=== PATIENT | female | born 1970 | race Caucasian/White ===

== ENCOUNTER 2024-03-05 14:54 | Outpatient (AMB) | payer MEDICARE, MEDICAID, SELFPAY ==
--- NOTE | 2024-03-05 14:58 | MHC.PC.OV ---
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 Intake Note: New patient visit Agile Coach Required: No Allergies No Known Allergies Allergy (Verified 03/05/24 14:59) Medication List - Last Reviewed 03/05/24 by Bianca Clifford CMA albuterol sulfate 90 mcg/actuation inhalation cholecalciferol (vitamin D3) (Vitamin D3) 10 mcg PO QAM escitalopram oxalate 5 mg PO DAILY escitalopram oxalate 20 mg PO DAILY lamotrigine 200 mg PO DAILY lisinopril 10 mg PO DAILY 90 days lorazepam 0.5 mg PO QID PRN mirabegron ER (Myrbetriq) 25 mg PO DAILY multivitamin 1 tab PO DAILY simvastatin 10 mg PO BEDTIME 90 days trazodone mg PO Tobacco use date assessed: 03/05/24 Dental Screening Dental Screen Date: 03/05/24 Did you have a dental visit in the last 12 months?: Yes Did you have a dental problem in the last 6 months where you did not have access to dental care?: No Was dental information given to patient?: Patient has 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 HLD, HTN. COPD, Carpal Tunnel w/ Compressed Ulnar nerve as well. AVM in R 3rd & 4th Finger., Fatty Liver disease SurgHx: R hand Surgery. C-sect x 2, Bladder Mesh/Sling. B/L Bunions FHx: Mom: DM, HTN, HLD, NA Cirrhosis - Fatty liver dz. Dad: Lung CA. Sister: Cervical CA SocHx: Smokes 1ppd Dr [place] [facility] [place] [facility] [place] Surgical History (Updated 03/05/24 @ 16:06 by Demarcus Arroyo) History of section Family History (Updated 03/05/24 @ 15:32 by Bianca Clifford CMA) Mother HTN (hypertension) Hypercholesteremia Diabetes Maternal Grandmother HTN (hypertension) Hypercholesteremia Diabetes Cardiovascular disease Maternal Grandfather Cardiovascular disease Father Lung cancer Bone cancer Other Mental disorder Social History Housing: House Patient Tobacco Use Status: Current everyday Tobacco user Cigarette Packs Per Day: 1 Years Smoked: 36 e-Cigarette/Vaping Use: Never Used Second Hand Smoke Exposure: Yes service: No Current occupational status: unemployed Cognitive needs: No Hearing needs: No Vision needs: No Questionnaire PHQ-9 Over the last 2 weeks, how often have you been bothered by any of the following problems? 1. Little interest or pleasure in doing things: not at all 2. Feeling down, depressed, or hopeless: not at all 3. Trouble falling or staying asleep, or sleeping too much: not at all 4. Feeling tired or having little energy: not at all 5. Poor appetite or overeating: not at all 6. Feeling bad about yourself - or that you are a failure or have let yourself or your family down: not at all 7. Trouble concentrating on things, such as reading the newspaper or watching television: not at all 8. Moving or speaking so slowly that other people could have noticed. Or the opposite - being so fidgety or restless that you have been moving around a lot more than usual: not at all 9. Thoughts that you would be better off or of hurting yourself in some way: not at all Total score: 0 Depression Screening Interpretation: Negative Depression Screening Done: Yes 35710 - PHQ-9 Billing: Yes Source: Developed by Drs. Andrea Larry, Radha Nevarez, Chema Oseguera and colleagues, with an educational adria from [employer]. Thrive Questionnaire Date Thrive assessed: 03/05/24 I am a: Patient What is your living situation today?: I have a steady place to live Within the past 12 months, did the food you bought not last and you didn't have the money to get more?: Sometimes True Within the past 12 months, did you worry whether your food would run out before you got money to buy more?: Sometimes True Do you have trouble paying for medicines?: No Do you have trouble getting transportation to medical appointments?: No Do you have trouble paying your heating and electricity bill?: No Do you have trouble taking care of your child, family member or friend?: No Do you have trouble with day-to-day activities such as bathing, preparing meals, shopping, managing finances, etc.?: No Are you currently unemployed and looking for a job?: Yes Are you interested in more education?: No Please select the resources that you would like help with: None Currently or been in a relationship where the following occur: no concerns reported THRIVE Score: 2 AUDIT C Alcohol Use Questionnaire (AUDIT-C) 1. How often do you have a drink containing alcohol?: Never 3. How often do you have six or more drinks on one occasion?: Never Total Score: 0 ROCHELLE-7 AMB Questionnaire ROCHELLE-7 Date ROCHELLE - 7 assessed: 03/05/24 Feeling nervous, anxious, or on edge: 2 = More than half the days Not being able to stop or control worryin = Several days Worrying too much about different things: 1 = Several days Trouble relaxin = Not at all Being so restless that it is hard to sit still: 0 = Not at all Becoming easily annoyed or irritable: 1 = Several days Feeling afraid as if something awful might happen: 1 = Several days Total ROCHELLE-7 score (0-4 normal; 5-9 mild; 10-14 moderate; 15-21 severe): 6 Source: Developed by Drs. Andrea Larry, Radha Nevarez, Chema Oseguera and colleagues, with an educational adria from [employer]. ROCHELLE-7 Assessment Billing ROCHELLE-7 Assessment Tool: ROCHELLE-7 Assessment 10932 ACT Questionnaire In the past 4 weeks, how much of the time did your asthma keep you from getting as much done at work, school or at home?: None of the time During the past 4 weeks, how often have you had shortness of breath?: 1-2 times a week During the past 4 weeks, how often did your asthma symptoms wake you up at night or earlier than usual in the morning?: Not at all During the past 4 weeks, how often have you had to use your rescue inhaler or nebulizer medication?: 2-3 times a week How would you rate your asthma control during the past 4 weeks?: Completely controlled ACT Interpretation: Positive Score: 22 Review of Systems Const Denies chills, Denies fatigue, Denies fever(s), Denies headache(s) and Denies weakness ENT Denies dizziness and Denies headache(s) Card Denies chest pain, Denies lightheadedness, Denies dyspnea and Denies other (Palpitations) Resp Denies cough, Denies dyspnea, Denies wheezing and Denies other ( shortness of breath) Musc Denies numbness and Denies tingling Neuro Denies dizziness, Denies headache(s), Denies numbness, Denies tingling, Denies paresthesias and Denies weakness Psych Denies anxiety and Denies depression Endo Denies fatigue Aller/Immun Denies wheezing Physical exam (Primary Care) Vital Signs: Last Vital Signs Temp 98.3 F 03/05/24 15:07 Pulse 104 H 03/05/24 15:07 Resp 16 03/05/24 15:07 BP 102/68 03/05/24 15:07 Pulse Ox 94 03/05/24 15:07 Oxygen Delivery Method Room Air 03/05/24 15:07 BMI result Body Mass Index 26.6 Tobacco/Smoking Status: Tobacco use Status Tobacco use date assessed 03/05/24 03/05/24 15:07 Patient Tobacco Use Status Current everyday Tobacco 03/05/24 15:07 e-Cigarette/Vaping Use Never Used 03/05/24 15:07 PHQ-9: PHQ-9 Score PHQ-9: Total score 0 03/05/24 15:55 Depression Screening Interpretation: Negative Thrive Assessment: Date of Thrive Assessment Date Thrive assessed 03/05/24 03/05/24 15:33 Currently or been in a relationship where the following occur: no concerns reported Const General: no acute distress and well developed Nutritional Appearance: well nourished Orientation/consciousness: patient oriented x3 [facility] Head: Yes normocephalic and Yes atraumatic Eyes General: appearance normal, both eyes and all related structures Pupils: Equal, round and reactive pupils present EOM: EOMs intact bilaterally Resp Other: Clear but distant breath sounds Effort & Inspection: normal respiratory effort Auscultation: clear to auscultation bilaterally Cardio Rate: regular rate Rhythm: regular rhythm Heart sounds: S1 normal heart sound present, S2 normal heart sound present, no gallops, no murmurs and no rubs Neuro General: patient oriented x3 and gait normal Cranial nerves: Yes Equal, round and reactive pupils present Psych Affect: normal affect Assessment and Plan Assessment & Plan (1) Anxiety with depression: Code(s): F41.8 - Other specified anxiety disorders Plan: As?above (2) Bipolar disorder: Code(s): F31.9 - Bipolar disorder, unspecified Plan: Bipolar?disorder?with?anxiety?and?depression. She?is?on?a?regimen?of?medication?prescribed?by?her?psych?med?provider?and?appears?well?controlled. She?will?continue?her?current?medications?and?follow-up?with?her?psych?med?provider?as?recommended (3) Hypertension: Code(s): I10 - Essential (primary) hypertension Plan: Blood?pressure?is?controlled.??Goal?is?less?than?140/90 Continue?current?medication (4) Hyperlipidemia: Code(s): E78.5 - Hyperlipidemia, unspecified Plan: She?is?on?simvastatin Check?lipid (5) Smoker: Code(s): F17.200 - Nicotine dependence, unspecified, uncomplicated Plan: Smoker?and?history?of?COPD Advised?weaning?and?cessation.??Patient?is?pre?contemplative?at?this?time. 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 Advised?smoking?cessation Follow-up?with?pulmonology?as?recommended (8) Urinary incontinence: Code(s): R32 - Unspecified urinary incontinence Plan: Continue?Myrbetriq (9) Laboratory exam ordered as part of routine general medical examination: Code(s): Z00.00 - Encounter for general adult medical examination without abnormal findings Plan: Check?labs Orders: Orders Lipid Panel Today Z00.00 - Encounter for general adult medical examination without abnormal findings UA and rflx microscopic Today Z00.00 - Encounter for general adult medical examination without abnormal findings TSH reflex Free T4 Today Z00.00 - Encounter for general adult medical examination without abnormal findings Vitamin D 25-OH Total Today E55.9 - Vitamin D deficiency, unspecified Complete Blood Count Auto Diff Today Z00.00 - Encounter for general adult medical examination without abnormal findings Comprehensive [place]. Panel Fast Today Z00.00 - Encounter for general adult medical examination without abnormal findings Microalbumin, Random (w Creat) Today I10 - Essential (primary) hypertension Medications: New lisinopril 10 mg PO DAILY 90 days 90 tabs 3RF simvastatin 10 mg PO BEDTIME 90 days 90 tabs 3RF Coding Level of Care Code New Pt Level 4 (61822) Diagnoses Anxiety with depression F41.8 Bipolar disorder F31.9 Hypertension I10 Hyperlipidemia E78.5 Smoker F17.200 Hx of carpal tunnel syndrome Z86.69 COPD (chronic obstructive pulmonary disease) J44.9 Urinary incontinence R32 Laboratory exam ordered as part of routine general medical examination Z00.00 Additional Codes ROCHELLE-7 Assessment Billing - ROCHELLE-7 Assessment Tool: ROCHELLE-7 Assessment [id number] ([id number])
[2024-03-05 15:07] VITALS: BP 102/68; PULSE 104; RESP 16; TEMP 36.8; O2SAT 94; BMI 26.6
== END 2024-03-05 16:17 | disposition home or self-care (01) ==
PROVIDERS: PCP Family Medicine; Visit Provider Family Medicine
DX: I10 Essential (primary) hypertension (principal); F31.9 Bipolar disorder, unspecified; J44.9 Chronic obstructive pulmonary disease, unspecified; F41.8 Other specified anxiety disorders; E78.5 Hyperlipidemia, unspecified; F17.210 Nicotine dependence, cigarettes, uncomplicated; Z86.69 Personal history of other diseases of the nervous system and sense organs; R32 Unspecified urinary incontinence
CPT/HCPCS: 99204

== ENCOUNTER 2024-08-19 15:30 | Outpatient (REF) | payer MEDICARE, MEDICAID, SELFPAY ==
[2024-08-19 17:55] LABS: MANUAL DIFF FLAG NO
[2024-08-19 18:04] LABS: Basophils Absolute Auto 0.1 X10*3/uL (0.0-0.2); Basophils Percent Auto 0.9 % (0-2); Eosinophils Absolute Auto 0.1 X10*3/uL (0.0-0.4); Eosinophils Percent Auto 1.2 % (0-4); Hematocrit 49.6 % (37.0-47.0); Imm Gran Abs Auto 0.02 X10*3/uL (0.00-0.03); Imm Gran Pct Auto 0.2 % (0.0-0.4); Lymphocytes Absolute Auto 4.5 X10*3/uL (1.2-4.9); Lymphocytes Percent Auto 39.7 % (20-40); Mean Corpuscular HGB Conc 34.3 g/dl (31.0-35.0); Mean Corpuscular Hemoglobin 33.4 pg (27.0-33.0); Mean Corpuscular Volume 97.4 fL (80.0-98.0); Mean Platelet Volume 9.9 fL (9.4-12.3); Monocytes Absolute Auto 0.6 X10*3/uL (0.1-1.2); Monocytes Percent Auto 5.5 % (2-11); Neutrophils Absolute Auto 5.9 x10*3/uL (2.0-8.3); Neutrophils Percent Auto 52.5 % (45-73); Platelet Count 282 X10*3/uL (160-400); Red Blood Count 5.09 X10*6/uL (4.20-5.50); Red Cell Distribution Width 12.5 % (11.0-16.0); White Blood Count 11.3 X10*3/uL (4.8-10.8)
[2024-08-19 18:10] LABS: Appearance Urine Clear; Color Urine Yellow; Glucose Urine UA Negative (Negative); Leukocyte Esterase Urine Negative (Negative); Nitrite Urine Negative (Negative); PH 6.5 (5.0-9.0); Specific Gravity - Urine <= 1.005 (1.005-1.025); Urine Blood Negative (Negative); Urine Ketones Negative (Negative); Urine Protein Negative (Neg-Trace)
[2024-08-19 18:25] LABS: Alanine Aminotransferase 75 U/L (0-31); Albumin Level 4.3 g/dL (3.5-5.0); Alkaline Phosphatase 152 U/L (39-117); Anion Gap 12 (12-20); Aspartate Amino Transferase 67 U/L (5-31); Bilirubin Total 0.4 mg/dL (0.0-1.0); Blood Urea Nitrogen 8 mg/dL (9-16); Calcium 10.1 mg/dL (8.4-10.2); Carbon Dioxide 29 mmol/L (22-29); Chloride 104 mmol/L (96-108); Cholesterol 137 mg/dL (<200); Estimated Glomerular Filt Rate > 60; Glucose Fasting 73 mg/dL (60-99); HDL Cholesterol 37 mg/dL (>40); LDL Cholesterol Calculated 70 mg/dL (<100); Potassium 4.5 mmol/L (3.3-5.1); Sodium 140 mmol/L (135-145); Total Protein 7.4 g/dL (6.5-8.0); Triglycerides 153 mg/dL (<150)
[2024-08-19 18:30] LABS: Creatinine Urine 22.05 mg/dL; Microalbumin Urine < 5.0 mg/L
[2024-08-19 18:45] LABS: TSH reflex Free T4 1.17 uIU/mL (0.32-4.0); Vitamin D 25-OH Total 62.2 ng/mL (>30)
== END 2024-08-19 15:31 | disposition home or self-care (01) ==
LOC: HO.WFDLDS 15:30
PROVIDERS: Visit Provider Family Medicine
DX: Z00.00 Encounter for general adult medical examination without abnormal findings (principal); E55.9 Vitamin D deficiency, unspecified; I10 Essential (primary) hypertension
CPT/HCPCS: 36415; 80053; 80061; 81003; 82306; 82570; 84443; 85025

== ENCOUNTER 2025-04-28 11:03 | Outpatient (AMB) | payer MEDICARE, MEDICAID, SELFPAY ==
--- NOTE | 2025-04-28 11:06 | A.OFFPC_ITS ---
Vital Signs 04/28/25 11:14 Height 5 ft 3 in Weight 146 lb 4 oz BMI 25.9 BP 122/70 Blood Pressure Location Lt brachial Position Sitting Respiration 12 Pulse 72 Pulse Source Pulse Oximeter Temp 97.5 F Temp Source Oral Pulse Oximetry (%) 97 Oxygen Delivery Method Room Air Intake Visit Reasons: Angela Dr Rai Intake Note: ANGELA to establish care. Patient c/o left ear blockage for a month on and off. 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: No Allergies No Known Allergies Allergy (Verified 04/28/25 11:07) Medication List - Last Reconciled 04/28/25 by Bertha Peres, [employer]- albuterol sulfate 90 mcg/actuation inhalation cholecalciferol (vitamin D3) (Vitamin D3) 10 mcg PO QAM escitalopram oxalate 5 mg PO DAILY escitalopram oxalate 20 mg PO DAILY lamotrigine 200 mg PO DAILY lisinopril 10 mg PO DAILY 90 days lorazepam 0.5 mg PO QID PRN mirabegron ER (Myrbetriq) 25 mg PO DAILY multivitamin 1 tab PO DAILY simvastatin 10 mg PO BEDTIME 90 days trazodone mg PO Tobacco use date assessed: 04/28/25 Dental Screening Dental Screen Date: 04/28/25 Did you have a dental visit in the last 12 months?: Yes Did you have a dental problem in the last 6 months where you did not have access to dental care?: No Was dental information given to patient?: Patient has dentist HPI HPI Comments History of Present Illness Details 55 y/o F HLD, Urine incont s/p bladder m esh, current smoker 1.5 packs per day, 45 pack year history; family hx of lung and uterine ca, Fatty liver, Bipolar w/ Anx & Dep. HLD, HTN, COPD,perforated septum s/p bladder mesh, c section x 2, R hand AVM removal, R elbow nerve release, R CTS release , bilat bunions Fhx: Dad lung ca; Mom of NAFLD, Siblings 6 alive 1 sister w/ uterine CA; reports lots of heart dz Social: single, 3 children, does not work Health Maintenance Tdap admin today Colon cologaurd done >3 years ago, renewed order today Mammo declined DEXA states done in the past and normal, i dont have these results Pap was active w/ [facility]. No recent screens. Declined future Specialists: Pulm Dr Miles [facility] - managed lung ca screening Counseling and prescriber @ [employer] in [place] [facility] Here today as a new patient to [facility] care Old records reviewed CC: c/o L ear feeling blocked on and off for 1 mo worse since onset denies environmental allergies this has never happened before mild pain that comes and goes denies fever, chills, drainage, exposure to h20, no loss of hearing. Itchy spot on back, has been there before; thinks its skin. this has happened on L arm before and it goes away cant reach or see this so not sure what it is not active w derm does have some growths on face that have been there for years; getting bigger and changing color, they are itchy. Fatty Liver with elevated LFT - labs 08/2024. Us 08/2022. Bipolar, Anx, Depression - under mgmt with [employer] for counseling and prescribing HTN controlled on lisinopril 10mg QD HLD - on simvastatin 10mg w/o side effects. COPD, active smoker - managed by [facility]. Tdap admin today. Does not want to quit smoking; enrolled in lung ca program at [facility] Urine incont s/p bladder mesh - managed by [facility], on Myrbetriq Exam Awake alert NAD Scleras nonicteric, wears glasses TM intact and clear bilat, EAC clear Perforated and deviated septum RRR LS dim throughout No edema BLE Mood and affect appropriate L shoulder is a raised sanpapery brown/black skin lesion; on face are several different size and color moles Plan: Tdap today Cologaurd ordererd Labs ordered Cont all meds Derm referral for area on back and moles on face Smoking cessation Declined mammo, pap and DEXA cont care w/ care team RTO 6 mo routjordan fu, labs 1 week before, sooner PRN An additional 45 minutes was spent addressing the problem(s) noted at todays visit. This includes time spent before the visit reviewing the chart, time spent during the visit, and time spent after the visit on documentation reviewing laboratory results, diagnostic imaging, medications, performing a medically necessary evaluation, counseling on diagnoses, care coordination, ordering appropriate tests, ordering appropriate medications, review of tests performed by other providers, reporting test results with the patient, communication with other healthcare providers. [facility] Medical History (Updated 04/28/25 @ 13:11 by JACKIE JonesJANET) Anxiety and depression Hx of carpal tunnel syndrome Surgical History (Updated 04/28/25 @ 11:48 by MEREDITH Jones) History of section History of colonoscopy (~2021) Family History Mother HTN (hypertension) Hypercholesteremia Diabetes Maternal Grandmother HTN (hypertension) Hypercholesteremia Diabetes Cardiovascular disease Maternal Grandfather Cardiovascular disease Father Lung cancer Bone cancer Other Mental disorder Social History (Updated 04/28/25 @ 11:17 by David Coe MA) Household Members: Children Housing: House Are you a primary specialist wound care to a significant other at home: No Do you presently have visiting nurse or other home services: No Alcohol intake: never Patient Tobacco Use Status: Current everyday Tobacco user Cigarette Packs Per Day: 1 Years Smoked: 36 e-Cigarette/Vaping Use: Never Used Second Hand Smoke Exposure: Yes service: No Current occupational status: unemployed Cognitive needs: No Hearing needs: No Vision needs: No Questionnaire PHQ-9 Over the last 2 weeks, how often have you been bothered by any of the following problems? 1. Little interest or pleasure in doing things: nearly every day 2. Feeling down, depressed, or hopeless: several days 3. Trouble falling or staying asleep, or sleeping too much: several days 4. Feeling tired or having little energy: several days 5. Poor appetite or overeating: more than half the days 6. Feeling bad about yourself - or that you are a failure or have let yourself or your family down: several days 7. Trouble concentrating on things, such as reading the newspaper or watching television: not at all 8. Moving or speaking so slowly that other people could have noticed. Or the opposite - being so fidgety or restless that you have been moving around a lot more than usual: not at all 9. Thoughts that you would be better off or of hurting yourself in some way: not at all Total score: 9 Depression Screening Interpretation: Positive Depression Screening Done: Yes 46663 - PHQ-9 Billing: Yes Source: Developed by Will Zaldivaret B.W. Roque, Chema Oseguera and colleagues, with an educational adria from Jaco Solarsi. Thrive Questionnaire Date Thrive assessed: 04/28/25 I am a: Patient What is your living situation today?: I have a steady place to live Within the past 12 months, did the food you bought not last and you didn't have the money to get more?: Never true Within the past 12 months, did you worry whether your food would run out before you got money to buy more?: Never true Do you have trouble paying for medicines?: No Do you have trouble getting transportation to medical appointments?: No Do you have trouble paying your heating and electricity bill?: Yes Do you have trouble taking care of your child, family member or friend?: No Do you have trouble with day-to-day activities such as bathing, preparing meals, shopping, managing finances, etc.?: No Are you currently unemployed and looking for a job?: No Are you interested in more education?: No Please select the resources that you would like help with: None Currently or been in a relationship where the following occur: No concerns reported THRIVE Score: 1 AUDIT C Alcohol Use Questionnaire (AUDIT-C) 1. How often do you have a drink containing alcohol?: Never 3. How often do you have six or more drinks on one occasion?: Never Total Score: 0 ROCHELLE-7 AMB Questionnaire ROCHELLE-7 Date ROCHELLE - 7 assessed: 04/28/25 Feeling nervous, anxious, or on edge: 3 = Nearly every day Not being able to stop or control worryin = Nearly every day Worrying too much about different things: 3 = Nearly every day Trouble relaxin = Not at all Being so restless that it is hard to sit still: 1 = Several days Becoming easily annoyed or irritable: 3 = Nearly every day Feeling afraid as if something awful might happen: 1 = Several days Total ROCHELLE-7 score (0-4 normal; 5-9 mild; 10-14 moderate; 15-21 severe): 14 Source: Developed by Drs. Andrea Larry, Radha Nevarez, Chema Oseguera and colleagues, with an educational adria from Jaco Solarsi. ROCHELLE-7 Assessment Billing ROCHELLE-7 Assessment Tool: ROCHELLE-7 Assessment 56751 Physical exam (Primary Care) Vital Signs: Last Vital Signs Temp 97.5 F 04/28/25 11:14 Pulse 72 04/28/25 11:14 Resp 12 04/28/25 11:14 BP 122/70 04/28/25 11:14 Pulse Ox 97 04/28/25 11:14 Oxygen Delivery Method Room Air 04/28/25 11:14 BMI result Body Mass Index 25.9 Tobacco/Smoking Status: Tobacco use Status Tobacco use date assessed 04/28/25 04/28/25 11:16 Patient Tobacco Use Status Current everyday Tobacco 04/28/25 11:17 e-Cigarette/Vaping Use Never Used 04/28/25 11:17 Are you ready to quit: No Tobacco cessation counseling provided: Yes Items discussed: Nicotine replacement, QuitWorks and Other Relapse Prevention: discussed the importance of a supportive environment, discussed extending NRT, discussed negative mood or depression after quitting, weight gain after smoking is common and discussed dietary, exercise and/or lifestyle changes Number of minutes spent counselin CPT code: 57428 - 4-10 Minutes PHQ-9: PHQ-9 Score PHQ-9: Total score 9 04/28/25 12:11 Depression Screening Interpretation: Positive Thrive Assessment: Date of Thrive Assessment Date Thrive assessed 04/28/25 04/28/25 11:16 Currently or been in a relationship where the following occur: No concerns reported Immunizations Boostrix Tdap 2.5 Lf unit-8 mcg-5 Lf/0.5 mL intramuscular syringe Performing Provider: NGUYEN Jones Performing Location: [facility] Administered by: David Coe MA on 04/28/25 12:11 Dose Route Admin Location Dispensed Lot Number Expiration Date NDC Telecommunication Engineer 0.5 mL IM Right Deltoid 0.5 mL [id number] 07/17/27 71489-112-00 Tran[employer] VIS Given Date VIS Provided VIS Publication Date 04/28/25 Single Vaccine 21 Eligibility Eligibility Date Funding Source Not [facility] Eligible 04/28/25 Private Coding Level of Care Code Est Pt Level 5 (07824) Est Pt Prev Care 40-64y(98443) Diagnoses Encounter for general adult medical examination with abnormal findings Z00.01 Papanicolaou smear declined Z53.20 Mammogram declined Z53.20 Smoker F17.200 Family history of lung cancer Z80.1 Panlobular emphysema J43.1 COPD type: emphysema Emphysema type: panlobular Bipolar disorder, current episode mixed, mild F31.61 Active/Remission status: currently active Current bipolar episode type: mixed Current episode severity: mild Mixed hyperlipidemia E78.2 Hyperlipidemia type: mixed hyperlipidemia Primary hypertension I10 Hypertension type: primary hypertension Elevated LFTs R79.89 Screening for lung cancer Z12.2 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 Need for Tdap vaccination Z23 Other urinary incontinence N39.498 Urinary Incontinence type: other incontinence Fatty liver K76.0 Anxiety with depression F41.8 Perforated nasal septum J34.89 Encounter to establish care Z76.89 Additional Codes ROCHELLE-7 Assessment Billing - ROCHELLE-7 Assessment Tool: ROCHELLE-7 Assessment 45572 ([id number]) PHQ-9 - 98075 - PHQ-9 Billing: Yes ([id number]) Vital Signs *Quality* - CPT code: 29655 - 4-10 Minutes ([id number]) Assessment & Plan Assessment & Plan (1) Encounter for general adult medical examination with abnormal findings: Onset Date: ~04/28/25 Code(s): Z00.01 - Encounter for general adult medical examination with abnormal findings Category: Medical (2) Papanicolaou smear declined: Code(s): Z53.20 - Procedure and treatment not carried out because of patient's decision for unspecified reasons Category: Medical (3) Mammogram declined: Code(s): Z53.20 - Procedure and treatment not carried out because of patient's decision for unspecified reasons Category: Medical (4) Smoker: Comment: Smoking Cessation How to Quit There are a lot of ways to quit smoking and many resources to help you. Family members, friends, and co-workers may be supportive or encouraging, but to be successful the desire and commitment to quit must be your own. Most people who have been able to successfully quit smoking made at least one unsuccessful attempt in the past. Try not to view past attempts to quit as failures, but rather as learning experiences. Stopping smoking or using smokeless tobacco is difficult, but anyone can do it. Know the symptoms to expect when you stop. Common symptoms include: ? An intense craving for nicotine ? Anxiety, tension, restlessness, frustration, or impatience ? Difficulty concentrating ? Drowsiness or trouble sleeping, as well as bad dreams and nightmares ? Drowsiness and trouble sleeping ? Headaches ? Increased appetite and weight gain ? Irritability or depression How severe your symptoms are depends on how long you smoked and how many cigarettes you smoked each day. Feel ready to quit? ? First and foremost, set a quit date and quit completely on that day. Before your quit date, you may begin reducing your cigarette use. But remember, there is no safe level of cigarette smoking. ? List the reasons why you want to quit. Include both short- and long-term benefits. ? Identify the times you are most likely to smoke. For example, do you tend to smoke when feeling stressed or down? When out at night with friends? While drinking coffee or alcohol? When bored? While driving? Right after a meal or sex? During a work break? While watching TV or playing cards? When you are with other smokers? ? Let all of your friends, family, and co-workers know of your plan to stop smoking and your quit date. Just being aware that they know what you're going through can be helpful, especially when you are grumpy. ? Get rid of all your cigarettes just before the quit date, and clean out anything that smells like smoke, such as clothes and furniture. Make a plan about what you will do instead of smoking at those times when you are most likely to smoke. ? Be as specific as possible. For example, drink tea instead of coffee -- tea may not trigger the desire for a cigarette. Or, take a walk when you feel stressed. ? Remove ashtrays and cigarettes from the car. Place pretzels or hard candies there instead. Pretend-smoke with a straw. ? Find activities that focus your hands and mind but are not taxing or fattening. Computer games, solitaire, knitting, sewing, and crossword puzzles may help. ? If you normally smoke after eating, find other ways to end a meal. Play a tape or CD, eat a piece of fruit, get up and make a phone call, or take a walk (a good distraction that also benoit calories). Make other changes in your lifestyle. ? Change your daily schedule and habits. Eat at different times or eat several small meals instead of three large ones. Sit in a different chair or even a different room. ? Satisfy your oral habits by eating celery or other low-calorie snack, chewing sugarless gum, or sucking on a cinnamon stick. ? Go to public places and restaurants where smoking is prohibited or restricted. ? Eat regular meals and don't eat too much candy or sweet things. ? Get more exercise. Take walks or ride a bike. Exercise helps relieve the urge to smoke. Set short-term quitting goals and reward yourself when you meet them. ? Every day, put the money you normally spend on cigarettes in a jar. Then buy s omething pleasurable after a period of time. ? Try not to think about all the days ahead you will need to avoid smoking. Take it one day at a time. ? Even one puff or one cigarette will make your desire for more cigarettes even stronger. However, it is normal to make mistakes. So even if you have one cigarette, you don't need to take the next one. Other tips to help you quit smoking and stick to it: ? Enroll in a smoking cessation program (hospitals, health departments, community centers, and work sites often offer programs). Learn about self-hypnosis or other techniques. ? Ask your health care provider about prescription medications that are safe and appropriate for you. ? Find out about nicotine patches, gum, and sprays. The [place] [employer]'s web site -- www.cancer.org -- is an excellent resource for smokers who are trying to quit, and the [employer] [place] [employer] can help some smokers kick the habit. Above all, don't get discouraged if you aren't able to quit smoking the first time. Nicotine addiction is a hard habit to break. Try something different next time. Develop new strategies, and try again. Many people take several attempts to finally kick the habit. Code(s): F17.200 - Nicotine dependence, unspecified, uncomplicated Category: Social Hx (5) Family history of lung cancer: Comment: dad Code(s): Z80.1 - Family history of malignant neoplasm of trachea, bronchus and lung Category: Medical (6) COPD (chronic obstructive pulmonary disease): Code(s): J44.9 - Chronic obstructive pulmonary disease, unspecified Category: Medical Qualifiers: COPD type: emphysema Emphysema type: panlobular Qualified Code(s): J43.1 - Panlobular emphysema (7) Bipolar disorder: Code(s): F31.9 - Bipolar disorder, unspecified Category: Medical Qualifiers: Active/Remission status: currently active Current bipolar episode type: mixed Current episode severity: mild Qualified Code(s): F31.61 - Bipolar disorder, current episode mixed, mild (8) Hyperlipidemia: Code(s): E78.5 - Hyperlipidemia, unspecified Category: Medical Qualifiers: Hyperlipidemia type: mixed hyperlipidemia Qualified Code(s): E78.2 - Mixed hyperlipidemia (9) Hypertension: Code(s): I10 - Essential (primary) hypertension Category: Medical Qualifiers: Hypertension type: primary hypertension Qualified Code(s): I10 - Essential (primary) hypertension (10) Elevated LFTs: Comment: [place] LIVER 2021 Code(s): R79.89 - Other specified abnormal findings of blood chemistry Category: Medical (11) Screening for lung cancer: Comment: [facility] Code(s): Z12.2 - Encounter for screening for malignant neoplasm of respiratory organs Category: Medical (12) Atypical squamoproliferative skin lesion: Comment: refer to ne derm Code(s): D49.2 - Neoplasm of unspecified behavior of bone, soft tissue, and skin Category: Medical (13) Need for Tdap vaccination: Code(s): Z23 - Encounter for immunization Category: Medical (14) Urinary incontinence: Comment: s/p mesh placement Code(s): R32 - Unspecified urinary incontinence Category: Medical Qualifiers: Urinary Incontinence type: other incontinence Qualified Code(s): N39.498 - Other specified urinary incontinence (15) Fatty liver: Comment: [place] 2021 Code(s): K76.0 - Fatty (change of) liver, not elsewhere classified Category: Medical (16) Anxiety with depression: Code(s): F41.8 - Other specified anxiety disorders Category: Medical (17) Perforated nasal septum: Code(s): J34.89 - Other specified disorders of nose and nasal sinuses Category: Medical (18) Encounter to establish care: Code(s): Z76.89 - Persons encountering health services in other specified circumstances Plan . Orders: Orders Complete Blood Count no Diff Today E78.5 - Hyperlipidemia, unspecified, I10 - Essential (primary) hypertension Comprehensive Met. Panel Today E78.5 - Hyperlipidemia, unspecified, I10 - Essential (primary) hypertension IRON PROFILE Today E78.5 - Hyperlipidemia, unspecified, I10 - Essential (primary) hypertension Lipid Panel Today E78.5 - Hyperlipidemia, unspecified, I10 - Essential (primary) hypertension Microalbumin, Random (w Creat) Today E78.5 - Hyperlipidemia, unspecified, I10 - Essential (primary) hypertension TSH reflex Free T4 Today E78.5 - Hyperlipidemia, unspecified, I10 - Essential (primary) hypertension Vitamin B12 and Folate Today E78.5 - Hyperlipidemia, unspecified, I10 - Essential (primary) hypertension TDaP Immunization Today Z23 - Encounter for immunization Hemoglobin A1c 6 Months E78.2 - Mixed hyperlipidemia, I10 - Essential (primary) hypertension Ferritin Today E78.5 - Hyperlipidemia, unspecified, I10 - Essential (primary) hypertension Hemoglobin A1c Today E78.5 - Hyperlipidemia, unspecified, I10 - Essential (primary) hypertension Vitamin D 25-OH Total Today E78.5 - Hyperlipidemia, unspecified, I10 - Esse ntial (primary) hypertension Comprehensive Met. Panel 6 Months E78.2 - Mixed hyperlipidemia, I10 - Essential (primary) hypertension Lipid Panel 6 Months E78.2 - Mixed hyperlipidemia, I10 - Essential (primary) hypertension Referrals Cologuard Test Z12.11 - Encounter for screening for malignant neoplasm of colon, Z12.12 - Encounter for screening for malignant neoplasm of rectum, Z98.890 - Other specified postprocedural states Dermatology Referral D49.2 - Neoplasm of unspecified behavior of bone, soft tissue, and skin Patient Instructions: Health screenings for women You should visit your health care provider from time to time, even if you are healthy. The purpose of these visits is to: Screen for medical issues Assess your risk for future medical problems Encourage a healthy lifestyle Update vaccinations and other preventive care services Help you get to know your provider in case of an illness Information Even if you feel fine, you should still see your provider for regular checkups. These visits can help you avoid problems in the future. For example, the only way to find out if you have high blood pressure is to have it checked regularly. High blood sugar and high cholesterol levels also may not have any symptoms in the early stages. A simple blood test can check for these conditions. There are specific times when you should see your provider or receive specific health screenings. The [place] Preventive Services Task Force publishes a list of recommended screenings. Below are screening guidelines for women ages 18 to 39. BLOOD PRESSURE SCREENING Your blood pressure should be checked at least once every 3 to 5 years if: Your blood pressure is in the normal range (top number less than 120 mm Hg and bottom number less than 80 mm Hg) You don't have risk factors for high blood pressure Ask your provider if you need your blood pressure checked more often if: The top number is 120 to 129 mm Hg or the bottom number is 70 to 79 mm Hg You have diabetes, heart disease, kidney problems, are overweight, or have certain other health conditions You have a first-degree relative with high blood pressure You are Black You had high blood pressure during a If the top number is 130 mm Hg or greater or the bottom number is 80 mm Hg or greater, this is considered stage 1 hypertension. Schedule an appointment with your provider to learn how you can reduce your blood pressure. Watch for blood pressure screenings in your area. Ask your provider if you can stop in to have your blood pressure checked. BREAST CANCER SCREENING Experts do not agree about the benefits of breast self-exams in finding breast cancer or saving lives. Talk to your provider about what is best for you. A screening mammogram is not recommended for most women under age 40. Your provider may discuss and recommend mammograms, MRI scans, or ultrasounds if you have an increased risk for breast cancer, such as: A mother or sister who had breast cancer at a young age (most often starting screening earlier than the age the close relative was diagnosed) You carry a high-risk genetic marker CERVICAL CANCER SCREENING Cervical cancer screening should start at age 21 years unless your provider advi ses otherwise. After the first test: Women ages 21 through 29 should have a Pap test every 3 years. Exoprts do not agree on whether HPV testing is recommended for this age group. Women ages 30 through 65 should be screened with either a Pap test every 3 years or the HPV test every 5 years or both tests every 5 years (called cotesting ). Women who have been treated for precancer (cervical dysplasia) should continue to have Pap tests for 20 years after treatment or until age 65, whichever is longer. If you have had your uterus and cervix removed (total hysterectomy), and you have not been diagnosed with cervical cancer or precancer (high grade cervical neoplasia), you do not need cervical cancer screening. CHOLESTEROL SCREENING Cholesterol screening should begin at: Age 45 for women with no known risk factors for coronary heart disease Age 20 for women with known risk factors for coronary heart disease Repeat cholesterol screening should take place: Every 5 years for women with normal cholesterol levels More often if changes occur in lifestyle (including weight gain and diet) More often if you have diabetes, heart disease, kidney problems, or certain other conditions DIABETES SCREENING You should be screened for diabetes starting at age 35 and then repeated every 3 years if you have no risk factors for diabetes. Screening may need to start earlier and be repeated more often if you have other risk factors for diabetes, such as: You have a first degree relative with diabetes. You are overweight or have obesity. You have high blood pressure, prediabetes, or a history of heart disease. Screening for diabetes should be done if you are planning to become and you are overweight and have other risk factors such as high blood pressure. DENTAL EXAM Go to the dentist once or twice every year for an exam and cleaning. Your dentist will evaluate if you need more frequent visits. EYE EXAM Have an eye exam every 5 to 10 years before age 40. If you have vision problems, have an eye exam every 2 years or more often if recommended by your provider. You should have an eye exam that includes an examination of your retina (back of your eye) at least every year if you have diabetes. IMMUNIZATIONS Commonly needed vaccines include: Flu shot: get one every year. COVID-19 vaccine: ask your provider what is best for you. Tetanus-diphtheria and acellular pertussis (Tdap) vaccine: have one at or after age 19 as one of your tetanus-diphtheria vaccines if you did not receive it as an adolescent. Tetanus-diphtheria: have a booster (or Tdap) every 10 years. Varicella vaccine: receive 2 doses if you never had chickenpox or the varicella vaccine. Hepatitis B vaccine: receive 2, 3, or 4 doses, depending on your exact circumstances. Measles, mumps, and rubella (MMR) vaccine: receive 1 to 2 doses if you are not already immune to MMR. Your provider can tell you if you are immune. Ask your provider about the human papillomavirus (HPV) vaccine if: You have not received the HPV vaccine in the past You have not completed the full vaccine series (you should catch up on this shot) Ask your provider if you should receive other immunizations if you have certain health problems that increase your risk for some diseases such as pneumonia. INFECTIOUS DISEASE SCREENING Women who are sexually active should be screened for chlamydia and gonorrhea up until age 25. Women 25 years and older should be screened for chlamydia and gonorrhea if at high risk. Screening for hepatitis C: All adults ages 18 to 79 should get a one-time test for hepatitis C. people should be screened at every . Screening for human immunodeficiency virus (HIV): All people ages 15 to 65 should get a one-time test for HIV. Depending on your lifestyle and medical history, you may also need to be screened for infections such as syphilis and HIV, as well as other infections. PHYSICAL EXAM All adults should visit their provider from time to time, even if they are healthy. The purpose of these visits is to: Screen for disease Assess your risk of future medical problems Encourage a healthy lifestyle Update your vaccinations and other preventive care services Maintain a relationship with a provider in case of an illness Your height, weight, and BMI should be checked at every exam. During your exam, your provider may ask you about: Depression and anxiety Diet and exercise Alcohol and tobacco use Safety issues, such as using seat belts, smoke detectors, and intimate partner violence Your medicines and risk for interactions SKIN SELF-EXAM Your provider may check your skin for signs of skin cancer, especially if you're at high risk, such as if you: Have had skin cancer before Have close relatives with skin cancer Have a weakened immune system OTHER SCREENING Talk with your provider about colon cancer screening if you have a strong family history of colon cancer or polyps, or if you have had inflammatory bowel disease or polyps yourself. Routine bone density screening of women under 40 is not recommended. Walk-In Care (Urgent Care): We Make it Easy Walk-in for urgent medical issues such as: ? Seasonal Allergies ? Insect Bites ? Cough ? Diarrhea ? Acute Asthma Attacks ? Back, Knee or Joint Pain ? Ear Infection ? Fever without a Rash ? Headaches ? Nausea ? Felicity Eye, Rash or Skin Irritation ? Sore Throat ? Sports Physicals ? Vomiting Most insurances are accepted. Patients do not need to be part of the [facility] to seek care at the walk-in clinic. Locations [facility] [address], [place] [address] ? [phone] [facility] Walk-In Care in [place] provides services to ages 18 and over. Open Sunday-Sunday: 8 a.m. to 5 p.m. and Sunday: 9 a.m. to 3 p.m.* *Hours may vary due to staffing availability. To confirm Walk-In Care hours in [place], please call [phone]. [address] [place] [address] ? [phone] [facility]In [facility] in [place] provides services to ages 12 and over. Open Sunday-Sunday: 8 a.m. to 5 p.m. Hours may vary due to staffing availability. To confirm Walk-In Care hours in [place], please call [phone]. LABORATORY SERVICES: [facility] Lab ? Primary Location [address] [place] [address] Sunday through Sunday 6:00 AM ? 5:00 PM Sunday 7:00 AM ? 11:00 AM* [phone] The [facility] Lab is centrally located near the front entrance of the [facility] for easy outpatient access. Convenient parking is provided for outpatients. *Hours may vary due to staffing availability. To confirm Laboratory hours for any location, please call [phone]. Offsite Location For your convenience, we offer offsite laboratory draw stations at the following locations: [address] [place] [address] ? [address], [facility] Sunday through Sunday 7:30 AM ? 1:00 PM* [phone] *Hours may vary due to staffing availability. To confirm Laboratory hours for any location, please call [phone]. [place] ? [address] Sunday through Sunday 6:00 AM ? 3:30 PM* Sunday 6:30 AM ? 3 PM* [phone] *Hours may vary due to staffing availability. To confirm Laboratory hours for any location, please call [phone] [place] [address] Sunday through Sunday 7:30 AM ? 4:00 PM* [phone] *Hours may vary due to staffing availability. To confirm Laboratory hours for any location, please call [phone] [place] [address] Sunday through 9:00 AM ? 4:00 PM* *Hours may vary due to staffing availability. To confirm Laboratory hours for any location, please call [phone]. Appointments are not necessary. Walk-ins are welcome. Like all the departments throughout the [facility], our Lab undergoes frequent reviews to ensure the quality and accuracy of test results, and our staff takes special pride in its status as a nationally accredited facility. Patient Portal: ONE PATIENT. ONE RECORD. BETTER CARE. [facility] has a fully integrated, cutting- edge mobile electronic health information system that has revolutionized the way we care for our patients and manage our organization. This system improves communication and coordination enabling us to provide safe, higher-quality care, and an overall positive experience for staff and patients. Our first priority, as always, is to deliver the highest quality care possible. The system is running in the background supporting that priority. This portal is for all [facility] services and practices. If you are experiencing any technical difficulties with enrolling or logging into the Patient Portal please complete the [facility] Patient Portal Technical Support Form. [facility] now offers a new secure on-line interactive tool for patients to review their health information ? ?Patient Portal. This interactive web portal will enable patients and their families to take an active role in their care by providing easy, secure access to their health information via the internet. The Patient Portal provides patients with instant access to their health information, including laboratory results, medications, allergies, demographic information, visit history, and more. In addition to managing their own care, parents and health care proxies with authorized consent will appreciate the ability to access the records of those individuals for whom they provide care. Please note: if you wish to gain access (Proxy) to another patient?s portal, you will be required to come to the Medical Records Department in person at [facility]. Both the patient giving proxy access and the proxy will need to provide photo identification and complete the appropriate authorization. The Patient Portal also allows track their appointments online. The [facility] Patient Portal also saves patients time by allowing them to submit updates to their demographic and contact information prior to their visits. Portal email notifications will also alert patients to any new activity on their portal, such as test results and new appointments. In order to initially enroll in the [facility] Patient Portal, you will need to enter some required information including the following: * your [facility] Medical Record number * your personal home email address * name * date of Please note: In order to enroll in the [facility] Patient Portal, we need to have you r email address on file in your electronic medical record. ?The email address needs to be specific for one person (yourself) in order for your Portal enrollment to be successful. ?You can update your email address in person with our Registration staff when you are registering for a hospital visit. ?Otherwise, you will need to come to the Health Information Management (Medical Records) Department at [facility]. ?We are open from Sunday ? Sunday from 7:30 a.m. ? 4:30 p.m. ?You will be required to present a photo id. Once you have successfully enrolled in the Patient Portal, you will receive a one-time user id and password for the Portal, sent to your email address. ?This will allow you to log into the Patient Portal within 99 hrs and reset your own logon id and password, and define personal security questions. ?Once your permanent login and password have been set, you can log into the [facility] Patient Portal at any time via the blue button above or from the Portal Logon button on any page of the [facility] website. [facility] encourage all of our patients to enroll in Patient Portal as it presents a valuable opportunity for patients and their families to actively participate in their care and stay healthy Welcome to [facility]. ?We look forward to working with you.
[2025-04-28 11:14] VITALS: BP 122/70; PULSE 72; RESP 12; TEMP 36.4; O2SAT 97; BMI 25.9
== END 2025-04-28 12:14 | disposition home or self-care (01) ==
LOC: HO.HMCFM 11:04
PROVIDERS: PCP Family Medicine; Visit Provider Nurse Practitioner Family
DX: Z00.01 Encounter for general adult medical examination with abnormal findings (principal); J43.1 Panlobular emphysema; F31.61 Bipolar disorder, current episode mixed, mild; Z53.20 Procedure and treatment not carried out because of patient's decision for unspecified reasons; F17.200 Nicotine dependence, unspecified, uncomplicated; Z80.1 Family history of malignant neoplasm of trachea, bronchus and lung; E78.2 Mixed hyperlipidemia; I10 Essential (primary) hypertension; R79.89 Other specified abnormal findings of blood chemistry; Z12.2 Encounter for screening for malignant neoplasm of respiratory organs; D49.2 Neoplasm of unspecified behavior of bone, soft tissue, and skin; Z23 Encounter for immunization

== ENCOUNTER → 2025-04-28 11:03 | Outpatient (BNVA) | payer MEDICARE, MEDICAID, SELFPAY | PROVIDERS: PCP Family Medicine; Visit Provider Nurse Practitioner Family | DX: Z00.01 Encounter for general adult medical examination with abnormal findings (principal); Z23 Encounter for immunization; J43.1 Panlobular emphysema; F31.61 Bipolar disorder, current episode mixed, mild; E78.2 Mixed hyperlipidemia; I10 Essential (primary) hypertension; R79.89 Other specified abnormal findings of blood chemistry; F17.200 Nicotine dependence, unspecified, uncomplicated; Z71.6 Tobacco abuse counseling; Z80.1 Family history of malignant neoplasm of trachea, bronchus and lung | CPT/HCPCS: 90471; 90715; 96127; 99212; 99396 ==

== ENCOUNTER 2025-04-28 12:45 | Outpatient (REF) | payer MEDICARE, MEDICAID, SELFPAY ==
[2025-04-28 14:26] LABS: Hematocrit 48.5 % (37.0-47.0); Hemoglobin 16.8 g/dl (12.0-16.0); Mean Corpuscular HGB Conc 34.6 g/dl (31.0-35.0); Mean Corpuscular Hemoglobin 33.4 pg (27.0-33.0); Mean Corpuscular Volume 96.4 fL (80.0-98.0); Mean Platelet Volume 10.1 fL (9.4-12.3); Platelet Count 276 X10*3/uL (160-400); Red Blood Count 5.03 X10*6/uL (4.20-5.50); Red Cell Distribution Width 12.9 % (11.0-16.0); White Blood Count 11.3 X10*3/uL (4.8-10.8)
[2025-04-28 14:37] LABS: Estimated Average Glucose 94 mg/dL; Hemoglobin A1C 133.6686 umol/L; Hemoglobin A1c % 4.9 % (<6.0)
[2025-04-28 14:50] LABS: Alanine Aminotransferase 76 U/L (0-31); Albumin Level 4.7 g/dL (3.5-5.0); Alkaline Phosphatase 154 U/L (39-117); Anion Gap 12 (12-20); Aspartate Amino Transferase 77 U/L (5-31); Bilirubin Total 0.6 mg/dL (0.0-1.0); Blood Urea Nitrogen 3 mg/dL (9-16); Calcium 9.6 mg/dL (8.4-10.2); Carbon Dioxide 31 mmol/L (22-29); Chloride 99 mmol/L (96-108); Cholesterol 134 mg/dL (<200); Estimated Glomerular Filt Rate > 60; Glucose Random 77 mg/dL (60-115); HDL Cholesterol 35 mg/dL (>40); Iron 142 mcg/dL (30-160); LDL Cholesterol Calculated 71 mg/dL (<100); Percent Iron Saturation 53 % (15-50); Sodium 138 mmol/L (135-145); Total Iron Binding Capacity 270 mcg/dL (228-428); Total Protein 7.4 g/dL (6.5-8.0); Triglycerides 140 mg/dL (<150); Unsaturated Iron Binding 128 ug/dL
[2025-04-28 15:10] LABS: Folate 15.4 ng/mL (> or = 4.0); Vitamin B12 1009 pg/mL (200-900)
[2025-04-28 15:11] LABS: Ferritin 390 ng/mL (10-250); TSH reflex Free T4 1.89 uIU/mL (0.32-4.0); Vitamin D 25-OH Total 64.3 ng/mL (>30)
[2025-04-28 15:24] LABS: Creatinine Urine 21.49 mg/dL; Microalbumin Urine < 5.0 mg/L
== END 2025-04-28 12:46 | disposition home or self-care (01) ==
LOC: HO.WFDLDS 12:45
PROVIDERS: Visit Provider Nurse Practitioner Family
DX: E78.5 Hyperlipidemia, unspecified (principal); I10 Essential (primary) hypertension
CPT/HCPCS: 36415; 80053; 80061; 82043; 82306; 82570; 82607; 82728; 82746; 83036; 83540; 84443; 85027

== ENCOUNTER 2025-10-26 12:05 | Outpatient (REF) | payer MEDICARE, MEDICAID, SELFPAY ==
[2025-10-26 19:00] LABS: Alanine Aminotransferase 50 U/L (0-31); Albumin Level 4.6 g/dL (3.5-5.0); Alkaline Phosphatase 142 U/L (39-117); Anion Gap 14 (12-20); Aspartate Amino Transferase 59 U/L (5-31); Blood Urea Nitrogen 4 mg/dL (9-16); Calcium 9.7 mg/dL (8.4-10.2); Carbon Dioxide 28 mmol/L (22-29); Chloride 99 mmol/L (96-108); Cholesterol 138 mg/dL (<200); Estimated Glomerular Filt Rate > 60; HDL Cholesterol 37 mg/dL (>40); Potassium 4.3 mmol/L (3.3-5.1); Sodium 137 mmol/L (135-145); Total Protein 7.2 g/dL (6.5-8.0); Triglycerides 143 mg/dL (<150)
--- OUTSIDE RECORDS SUMMARY | 2025-10-26 21:54 | XMS_ITS | Encounter Summary ---
Author Organization [facility] Address [address] [place] [id number] Phone Care Team Providers Care Wagon Driller Name Role Phone Genaro Marshall MD Primary Care Provider Sandee Miles MD Unavailable Encounter Details Date Type Department Care Team (Late st Contact Info) Description 12/13/2023 Procedure Pass [facility] PERIOPERATIVE DEPT [address] [place] [id number] Social History Tobacco Use Types Packs/Day Years Used Date Smoking Tobacco: Every Day Cigarettes 1.5 35 Smokeless Tobacco: Never Alcohol Use Standard Drinks/Week Comments Never 0 (1 standard drink = 0.6 oz pur e alcohol) Education Answer Date Recorded Are you interested in more education? Not on kaitlynn e 2023 Are you concerned about learning? Not on file 2023 No 2023 No 2023 Digital Access Answer Date Recorded No 2023 No 2023 Reliable internet access at home? Not on file 2023 Device with a working camera? Not on file Intimate Partner Violence Answer Date R ecorded Are you denied basic needs s uch as food, clothing, or medical care? No 12/13/2023 In the past 12 months have y ou been in a relationship with a person who hurts, threatens, or tries to control you? No 12/13/2023 Are you denied basic needs s uch as food, clothing, or medical care? No 12/13/2023 In the past 12 months have y ou been in a relationship with a person who hurts, threatens, or tries to control you? No 12/13/2023 Comments No Sex and Gender Information Value Date Recorded Sex Assigned at Female 04/18/2023 2:01 PM EDT Legal Sex Female 1:59 PM EDT Gender Identity Female 04/18/2023 2:01 PM EDT Sexual Orientation Straight 04/18/2023 2: 01 PM EDT documented as of this encounter Plan of Treatment Not on file documented as of this encounter Visit Diagnoses Not on filedocumented in this encounter Care Teams Wagon Driller Relationship Specialty Start Date End Date Genaro Marshall MD [address] [place] [phone] PCP - General Internal Medicine 04/18/23 Sandee Miles MD [address] [place] [phone] [email or web address] Internal Medicine 11/22/23 documented as of this encounter Additional Source Comments The information contained in this document represents components of the legal health record. It is not the complete legal health record.[facility]
--- OUTSIDE RECORDS SUMMARY | 2025-10-26 21:54 | XMS_ITS | Clinical Summary ---
Author Organization [facility] Address [address] [employer] [address] [address] Phone Care Team Providers Care Shiatsu Therapist Name Role Phone Genaro Marshall MD Primary Care Provider Sandee Miles MD Unavailable Allergies Active Allergy Reactions Criticality Noted Date Comments Jsqbqcyivn-Zubkqjly-Yxa moterol Shortness Of Breath High 11/22/2023 Varenicline Other (See Comments) 11/22/2023 Suicidal ideation Medications albuterol 90 mcg/actuation inhaler INHALE 2 PUFFS BY MOUTH EVERY 6 HOURS NEEDED FOR WHEEZING / SHORTNESS OF BREATH 3 Active CHOLECALCIFEROL 10 mcg (400 unit) tablet Active escitalopram oxalate (LEXAPRO) 5 MG tablet TAKE 1 TABLET BY MOUTH ONCE A DAY WITH 20 MG LEXAPRO Active escitalopram oxalate (LEXAPRO) 20 MG tablet Active lamoTRIgine (LAMICTAL) 200 MG IMMEDIATE release tablet Activ e lisinopril (PRINIVIL,ZESTR IL) 10 MG tablet Active LORazepam (ATIVAN) 0.5 MG tablet Active MYRBETRIQ 25 mg Tb24 Take 25 mg by mouth daily. Active multivitamin/ir on/folic acid (CERTAVITE-ANTI OXIDANT ORAL) Active simvastatin (ZOCOR) 10 MG tablet Active traZODone (DESYREL) 50 MG tablet Active ibuprofen (ADVIL,MOTRIN) 600 MG tablet Take 1 tablet (600 mg total) by mouth every 6 (six) hours as needed for pain (specific location in comments). Please hold for 2 weeks postop to decrease risk of bleeding 30 tablet 4 Active acetaminophen (TYLENOL) 325 mg tablet Take 2 tablets (650 mg total) by mouth every 6 (six) hours as needed for fever, pain (specific location in comments) or headache. 30 tablet 4 Active gabapentin (NEURONTIN) 100 MG capsule Take 2 capsules (200 mg total) by mouth every 8 (eight) hours for 14 days. 84 capsule 4 Active oxyCODONE 5 MG immediate release tablet Take 1-2 tablets (5-10 mg total) by mouth every 4 (four) hours as needed. Partial fill ok 20 tablet 4 Active senna (SENOKOT) 8.6 mg tablet Take 1 tablet by mouth nightly at bedtime as needed for constipation. 10 tablet 4 Active Active Problems Problem Noted Date Diagnosed Date H/O hand surgery 12/13/2023 Social History Tobacco Use Types Packs/Day Years [...] ecorded Are you denied basic needs s [facility] as food, clothing, or medical care? No 12/13/2023 In the past 12 months have y ou been in a relationship with a person who hurts, threatens, or tries to control you? No 12/13/2023 Are you denied basic needs s [facility] as food, clothing, or medical care? No [...] Orientation Straight 04/18/2023 2: 01 PM EDT Last Filed Vital Signs Vital Sign Reading Time Taken Comments Blood Pressure 97/55 12/14/2023 7:10 AM EST Pulse 73 12/14/2023 7:10 AM EST Temperature 36.5 C (97.7 F) 12/14/2023 7:15 AM EST Respiratory Rate 16 12/14/2023 7:15 AM EST Oxygen Saturation 95% 12/14/2023 7:15 AM EST Inhaled Oxygen Concentration - - Weight 68 kg (150 lb) 12/13/2023 8:44 AM EST Height 160 cm (5' 3 ) 12/13/2023 8:44 AM EST Body Mass Index 26.57 12/13/2023 8:44 AM EST Plan of Treatment Health Maintenance Due Date Last Done Comments Adult Td,Tdap Booster 1971 CREATININE LEVEL 1971 LIPID PANEL 1971 POTASSIUM LEVEL 1971 DEPRESSION SCREENING 1983 SMOKING Hx and SMOKELESS TOB ACCO SCREENING 1984 HEPATITIS C SCREENING 1989 HIV ONE-TIME SCREENING (18-6 5 YEARS) 1989 PNEUMOCOCCAL VACCINES (50+ y ears) (1 of 2 - PCV) 1990 PAP SMEAR 1992 SCREENING FOR DIABETES 2006 MAMMOGRAM 2011 COLOGUARD 2016 COLONOSCOPY 2016 COLORECTAL CANCER SCREENING 2016 FIT TEST 2016 FOBT 2016 SIGMOIDOSCOPY 2016 VIRTUAL COLONOSCOPY 2016 ZOSTER VACCINES (1 of 2) 2021 INFLUENZA VACCINE (#1) 2025 COVID-19 VACCINE ( - 2024-2 6 season) 2025 RSV VACCINE (1 - 1-dose 75+ series) 2046 HEPATITIS A VACCINES Aged Out No long er eligible based on patient's age to complete this topic HIB VACCINES Aged Out No longer eligi ble based on patient's age to complete this topic MENINGOCOCCAL VACCINES (ACWY) Aged Out No longer eligible based on patient's age to complete this topic MENINGOCOCCAL VACCINES (B) Aged Out N o longer eligible based on patient's age to complete this topic Medical Devices Implanted Type Area Director University Device Identifier Shelf Expiration Date Model / Serial / Lot Screw Screw Bilateral: Foot Insurance MEDICARE PART A & B HEALTH MEDICARE PART A & B [facility] & [facility] & [facility] & [facility] MEDIC[facility] PART A & B [facility] Care Teams Shiatsu Therapist Relationship Specialty Start Date End Date Genaro Marshall MD [address] [place] [phone] PCP - General Internal Medicine 04/18/23 Sandee Miles MD [address] [place] [phone] [email or web address] Internal Medicine 11/22/23 Additional Source Comments The information contained in this document represents components of the legal health record. It is not the complete legal health record.[facility]
== END 2025-10-26 12:06 | disposition home or self-care (01) ==
LOC: HO.WFDLDS 12:05
PROVIDERS: PCP Nurse Practitioner Family; Visit Provider Nurse Practitioner Family
DX: Z23 Encounter for immunization (principal); E78.2 Mixed hyperlipidemia; I10 Essential (primary) hypertension; Z79.899 Other long term (current) drug therapy
CPT/HCPCS: 36415; 80053; 80061; 83036; 90471; 90656; 96127; 99212

== ENCOUNTER 2025-10-26 12:05 | Outpatient (AMB) | payer MEDICARE, MEDICAID, SELFPAY ==
--- NOTE | 2025-10-26 12:07 | A.OFFPC_ITS ---
Vital Signs 10/26/25 12:10 10/26/25 12:30 Height 5 ft 3 in Weight 136 lb 2 oz BMI 24.1 BP 118/68 Blood Pressure Location Lt brachial Position Sitting Respiration 13 Pulse 103 H 101 H Pulse Source Pulse Oximeter Pulse Oximeter Temp 97.6 F Temp Source Oral Pulse Oximetry (%) 95 96 Oxygen Delivery Method Room Air Room Air Intake Visit Reasons: 6 mo CPE Intake Note: CPE. Insecticide Expert Required: No Allergies No Known Allergies Allergy (Verified 10/26/25 12:18) Medication List - Last Reconciled 10/26/25 by Bertha Peres, [facility]- albuterol sulfate 90 mcg/actuation inhalation cholecalciferol (vitamin D3) (Vitamin D3) 10 mcg PO QAM escitalopram oxalate 5 mg PO DAILY escitalopram oxalate 20 mg PO DAILY lamotrigine 200 mg PO DAILY lisinopril 10 mg PO DAILY 90 days lorazepam 0.5 mg PO QID PRN mirabegron ER (Myrbetriq) 25 mg PO DAILY multivitamin 1 tab PO DAILY simvastatin 10 mg PO BEDTIME 90 days trazodone mg PO Tobacco use date assessed: 10/26/25 Dental Screening Dental Screen Date: 10/26/25 Did you have a dental visit in the last 12 months?: Yes Did you have a dental problem in the last 6 months where you did not have access to dental care?: No Was dental information given to patient?: Patient has dentist HPI HPI Comments History of Present Illness Details 55 y/o F Urine incont s/p bladder mesh, current smoker 1.5 packs per day, 45 pack year history; family hx of lung and uterine ca, Fatty liver, Bipolar w/ Anx & Dep. HLD, HTN, COPD,perforated septum s/p bladder mesh, c section x 2, R hand AVM removal, R elbow nerve release, R CTS release , bilat bunions Fhx: Dad lung ca; Mom of NAFLD, Siblings 6 alive 1 sister w/ uterine CA; reports lots of heart dz Social: single, 3 children, does not work Health Maintenance Tdap 2024 Flu 10/26/25 Colon cologaurd done >3 years ago, will have repeat colon w/ Dr Harrison Mammo declined DEXA states done in the past and normal, i dont have these results Pap was active w/ [facility]. No recent screens. Declined future Specialists: Pulm Dr Miles [facility] - managed lung ca screening Counseling and prescriber @ [facility] [facility] in [place] [facility] -> needs to est care looking for local referral. GI Dr Harrison visit [address] Youngblood - 2024 states does not need to be seen History of Present Illness The patient is a 55 year old female presenting for a routine complex disease management visit. Tobacco use disorder: - The patient is a current smoker with a consumption of 1.5 packs per day and has a 09-[id number]-avzg history. - Cont to smoke, no interest in quitting . Active in lung ca screening Chronic Obstructive Pulmonary Disease: - The patient has a history of COPD, for which she uses an albuterol inhaler. - She sees a ship cleaner for this cond ition and needs to schedule a new appointment. - Due for flu shot today; advised to get pneumonia shot at pharmacy Hyperlipidemia: - The patient has hyperlipidemia, manage d with simvastatin 10 mg. Hypertension: - The patient has a history of hypertens ion and takes lisinopril. BP at goal Noted to be tachycardic today; denies sx its always high, usually around 99 Bipolar disorder: - The patient has a history of bipolar d isorder with anxiety and depression, for which she is prescribed bucitalopram, lamotrigine, and lorazepam. - Managed by outside prescriber Urinary incontinence: - The patient reports urinary incontinen ce and takes Myrbetriq (mirabegron). Active w/ [facility] Preventative care: Screenings: - The patient is active in the lung canc er screening program at [facility] due to a family history of lung cancer and her smoking history. - She was referred to a GI specialist, Danyel Harrison, who recommended a colonoscopy due to being at high risk; however, she was unable to complete the prep drink and had to cancel the procedure. - She has encountered difficulty schedul ing a dermatology appointment due to availability and insurance issues. - She has not seen her newspaper photo editor in a pproximately four years and is postmenopausal with her fallopian tubes ligated. ([facility] Elevated iron level: - The patient's recent lab work showed a high iron level, which a grout worker/oncologist attributed to her smoking habit, stating that no further evaluation was needed at this time. Past Medical History - Tobacco use disorder: Current smoker, 1.5 packs per day, 89-guyh-qdue history. - Family history of lung cancer. - COPD managed with albuterol. - Hyperlipidemia managed with simvastati n 10 mg. - Hypertension managed with lisinopril. - Bipolar disorder with anxiety and depr ession, managed with bucitalopram, lamotrigine, and lorazepam. - Urinary incontinence managed with Myrb etriq. - Postmenopausal. - Surgical history: Tubal ligation. - Immunization history: Received first a nd second COVID-19 vaccines. Review of Systems - Cardiovascular: Reports a persistently elevated heart rate, around 99 BPM. Denies chest pain. - Respiratory: Breathing is reported as okay. Denies wheezing. - Gastrointestinal: Reports inability to tolerate colonoscopy prep drink due to vomiting. - Integumentary: Reports having a skin s pot that needs evaluation. Physical Exam General: Well developed, well nourished, in no acute distress. Appears stated age. Head: Normocephalic, atraumatic. Eyes: Pupils are equal, round and reactive to light and accommodation. Conjunctivae are clear. Lungs: Dim throughout Heart: Regular rhythm, mildly tachycardic. No murmurs, click, rubs or gallops are noted. Abdomen: Bowel sounds present in all quadrants. The abdomen is soft, nontender Musculoskeletal: Joints are nontender, without swelling, redness, or effusions. Pulses: Peripheral pulses are equal and palpable bilaterally. Extremities: No clubbing, cyanosis nor edema is noted. Psych: Mood and affect appropriate. Results Pending Medical Decision Making The patient is a 55-year-old female here for a 6-month complex disease management follow-up. She has multiple chronic conditions including tobacco use, COPD, hyperlipidemia, hypertension, and bipolar disorder, which are managed with medications. Her elevated iron level was previously reviewed by Dr. Youngblood, a grout worker, who attributed it to her smoking and concluded that no further action was needed. The patient requires refills for simvastatin and lisinopril. Preventative care was a major focus of the visit. She was advised to reschedule her colonoscopy, which was canceled due to intolerance to the prep. A referral will be updated for a dermatology consult to evaluate a skin lesion, with [facility] suggested as a local option. Today, she will receive an influenza vaccine and was advised she can receive the pneumonia vaccine at the pharmacy. Repeat labs are ordered today to recheck her cholesterol profile, kidney, and liver function. Follow-up is scheduled in six months for her annual physical exam. Plan 1. Hyperlipidemia - A refill for simvastatin was sent to [facility] pharmacy. - Lab work to recheck cholesterol profil e was ordered to be done today. 2. Hypertension - A refill for lisinopril was sent to [facility] pharmacy. 3. Preventative Care: Colon Cancer Nikia farmer - The patient was advised to reschedule her colonoscopy. - She had to cancel her previous appoint ment because she was unable to tolerate the prep drink. 4. Preventative Care: Skin Cancer Screen ing - The patient was advised to contact [facility] in [place] for an appointment, as it is a local option. - If the new dermatology office accepts her insurance, the referral will be updated. - The patient was reassured that her ski n lesion is not suggestive of melanoma and can be evaluated within several months. 5. Preventative Care: Vaccinations - The patient will receive the influenza vaccine in the office today. - She was advised to get the pneumonia v accine at the pharmacy, noting it is safe to receive at the same time as the flu shot. - Smoking cessation 6. Follow-Up And Patient Communication - Repeat labs were ordered to check chol esterol, kidney, and liver function. - The patient was instructed to use the patient portal for all communication to ensure timely and direct responses. - Follow-up is scheduled in six months f or her annual physical exam. Patient Instructions - You will receive your flu shot in the office today. - When you fiber picker your refilled prescri ptions at the pharmacy, please ask for the pneumonia shot. It is safe to get at the same time as your flu shot. - Your prescriptions for simvastatin and [facility] [address] [facility] in [place]. - Please stop at the front end mechanic to get y our blood work done today before you leave. - Please call [facility] in [facility] to see if they accept your insurance and can schedule you for an appointment. - If [facility] accepts your in surance, please send a message through the patient portal so we can update your referral. - Please schedule an appointment with [facility] newspaper photo editor, as it has been four years. - Please reschedule your colonoscopy. - Please use the patient portal for any future communication with our office to ensure you get a timely response. - Your next appointment should be in six months for your annual physical exam. Consent The patient consented to receiving the influenza vaccination during the visit. Patient was informed and verbally consented to the use of an ambient scribe for clinic note documentation during this visit. Total time spent caring for the patient today was 30 minutes. This includes time spent before the visit reviewing the chart, time spent during the visit, and time spent after the visit on documentation, reviewing laboratory results, diagnostic imaging, medications, performing a medically necessary evaluation, counseling on diagnoses, care coordination, ordering appropriate tests, ordering appropriate medications, review of tests performed by other providers, reporting test results with the patient, communication with other healthcare providers. [facility] Medical History (Updated 10/26/25 @ 12:44 by NGUYEN Jones) Anxiety and depression Hx of carpal tunnel syndrome Surgical History (Updated 04/28/25 @ 11:48 by NGUYEN Jones) History of section History of colonoscopy (~2021) Family History Mother HTN (hypertension) Hypercholesteremia Diabetes Maternal Grandmother HTN (hypertension) Hypercholesteremia Diabetes Cardiovascular disease Maternal Grandfather Cardiovascular disease Father Lung cancer Bone cancer Other Mental disorder Social History (Updated 04/28/25 @ 11:17 by David Coe MA) Household Members: Children Both parents involved: No Caregiver staying overnight: No Housing: House Are you a primary healthcare customer service to a significant other at home: No Do you presently have visiting nurse or other home services: No 75 years or older and lives alone: No Alcohol intake: never Patient Tobacco Use Status: Current everyday Tobacco user Cigarette Packs Per Day: 1 Years Smoked: 36 e-Cigarette/Vaping Use: Never Used Second Hand Smoke Exposure: Yes service: No Current occupational status: unemployed Cognitive needs: No Hearing needs: No Vision needs: No Questionnaire PHQ-9 Over the last 2 weeks, how often have you been bothered by any of the following problems? 1. Little interest or pleasure in doing things: not at all 2. Feeling down, depressed, or hopeless: not at all 3. Trouble falling or staying asleep, or sleeping too much: not at all 4. Feeling tired or having little energy: not at all 5. Poor appetite or overeating: not at all 6. Feeling bad about yourself - or that you are a failure or have let yourself or your family down: not at all 7. Trouble concentrating on things, such as reading the newspaper or watching television: not at all 8. Moving or speaking so slowly that other people could have noticed. Or the opposite - being so fidgety or restless that you have been moving around a lot more than usual: not at all 9. Thoughts that you would be better off or of hurting yourself in some way: not at all Total score: 0 Depression Screening Interpretation: Negative Depression Screening Done: Yes 36955 - PHQ-9 Billing: Yes Source: Developed by Drs. Andrea Larry, Radha Nevarez, Chema Oseguera and colleagues, with an educational adria from [employer]. Thrive Questionnaire Date Thrive assessed: 10/26/25 I am a: Patient What is your living situation today?: I have a steady place to live Within the past 12 months, did the food you bought not last and you didn't have the money to get more?: Never true Within the past 12 months, did you worry whether your food would run out before you got money to buy more?: Never true Do you have trouble paying for medicines?: No Do you have trouble getting transportation to medical appointments?: No Do you have trouble paying your heating and electricity bill?: Yes Do you have trouble taking care of your child, family member or friend?: No Do you have trouble with day-to-day activities such as bathing, preparing meals, shopping, managing finances, etc.?: No Are you currently unemployed and looking for a job?: No Are you interested in more education?: No Please select the resources that you would like help with: None Currently or been in a relationship where the following occur: No concerns reported THRIVE Score: 1 AUDIT C Alcohol Use Questionnaire (AUDIT-C) 1. How often do you have a drink containing alcohol?: Never 3. How often do you have six or more drinks on one occasion?: Never Total Score: 0 Score Reviewed/Action Taken: Yes ROCHELLE-7 AMB Questionnaire ROCHELLE-7 Date ROCHELLE - 7 assessed: 10/26/25 Feeling nervous, anxious, or on edge: 0 = Not at all Not being able to stop or control worryin = Not at all Worrying too much about different things: 0 = Not at all Trouble relaxin = Not at all Being so restless that it is hard to sit still: 0 = Not at all Becoming easily annoyed or irritable: 0 = Not at all Feeling afraid as if something awful might happen: 0 = Not at all Total ROCHELLE-7 score (0-4 normal; 5-9 mild; 10-14 moderate; 15-21 severe): 0 Source: Developed by Drs. Andrea Larry, Radha Nevarez, Chema Oseguera and colleagues, with an educational adria from [employer]. ROCHELLE-7 Assessment Billing ROCHELLE-7 Assessment Tool: ROCHELLE-7 Assessment 45370 Physical exam (Primary Care) Vital Signs: Last Vital Signs Temp 97.6 F 10/26/25 12:10 Pulse 101 H 10/26/25 12:30 Resp 13 10/26/25 12:10 BP 118/68 10/26/25 12:10 Pulse Ox 96 10/26/25 12:30 Oxygen Delivery Method Room Air 10/26/25 12:30 BMI result Body Mass Index 24.1 Tobacco/Smoking Status: Tobacco use Status Tobacco use date assessed 10/26/25 10/26/25 12:12 Patient Tobacco Use Status Current everyday Tobacco 10/26/25 12:12 e-Cigarette/Vaping Use Never Used 10/26/25 12:12 Are you ready to quit: No Tobacco cessation counseling provided: Yes Items discussed: Nicotine replacement, QuitWorks and Other Relapse Prevention: discussed the importance of a supportive environment, discussed extending NRT, discussed negative mood or depression after quitting, weight gain after smoking is common and discussed dietary, exercise and/or lifestyle changes Number of minutes spent counselin CPT code: 09367 - 4-10 Minutes PHQ-9: PHQ-9 Score PHQ-9: Total score 0 10/26/25 12:18 Depression Screening Interpretation: Negative Thrive Assessment: Date of Thrive Assessment Date Thrive assessed 10/26/25 10/26/25 12:12 Currently or been in a relationship where the following occur: No concerns reported Office Procedures Flu Questionnaire Does the patient have a severe egg allergy?: No Does the patient have severe life threatening allergies?: No Does the patient have a fever or illness today?: No Has the patient ever had Guillain-Parkston Syndrome?: No Has the patient ever had any past reaction to a flu shot?: No Immunizations Fluarix [id number] (PF) 45 mcg (15 mcg x 3)/0.5 mL IM syringe Performing Provider: NGUYEN Jones Performing Location: [facility] Administered by: David Coe MA on 10/26/25 12:38 Dose Route Admin Location Dispensed Lot Number Expiration Date NDC Artificial Breast Fabricator 0.5 mL IM Left Deltoid 0.5 mL [id number] 05/18/26 12177-621-72 [employer] VIS Given Date VIS Provided VIS Publication Date 10/26/25 Single Vaccine 24 Eligibility Eligibility Date Funding Source Not [facility] Eligible 10/26/25 Private Coding Level of Care Code Est Pt Level 4 (15643) Complex visit Add On G2211 Diagnoses Primary hypertension I10 Hypertension type: primary hypertension Mixed hyperlipidemia E78.2 Hyperlipidemia type: mixed hyperlipidemia Elevated ferritin, hemoglobin, and red blood cell count R79.89; D58.2; R71.8 Bipolar disorder, current episode mixed, mild F31.61 Active/Remission status: currently active Current bipolar episode type: mixed Current episode severity: mild 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 Panlobular emphysema J43.1 COPD type: emphysema Emphysema type: panlobular Smoker F17.200 Influenza vaccination administered at current visit Z23 Tachycardia R00.0 Additional Codes ROCHELLE-7 Assessment Billing - ROCHELLE-7 Assessment Tool: ROCHELLE-7 Assessment 21814 ([id number]) PHQ-9 - 52246 - PHQ-9 Billing: Yes ([id number]) Vital Signs *Quality* - CPT code: 45934 - 4-10 Minutes ([id number]) Assessment & Plan Assessment & Plan (1) Hypertension: Code(s): I10 - Essential (primary) hypertension Category: Medical Qualifiers: Hypertension type: primary hypertension Qualified Code(s): I10 - Essen tial (primary) hypertension (2) Hyperlipidemia: Code(s): E78.5 - Hyperlipidemia, unspecified Category: Medical Qualifiers: Hyperlipidemia type: mixed hyperlipidemia Qualified Code(s): E78.2 - Mixed hyperlipidemia (3) Elevated ferritin, hemoglobin, and red blood cell count: Comment: case reviewed by Dr Youngblood, heme 05/2025 advised d/t smoking and no appt or heme fu needed Code(s): R79.89 - Other specified abnormal findings of blood chemistry; D58.2 - Other hemoglobinopathies; R71.8 - Other abnormality of red blood cells Category: Medical (4) Bipolar disorder: Code(s): F31.9 - Bipolar disorder, unspecified Category: Medical Qualifiers: Active/Remission status: currently active Current bipolar episode type: mixed Current episode severity: mild Qualified Code(s): F31.61 - Bipolar disorder, current episode mixed, mild (5) Atypical squamoproliferative skin lesion: Comment: refer to derm [facility] offered as local send message w/ updated info as needed active referral to [facility] in [place] Code(s): D49.2 - Neoplasm of unspecified behavior of bone, soft tissue, and skin Category: Medical (6) COPD (chronic obstructive pulmonary disease): Code(s): J44.9 - Chronic obstructive pulmonary disease, unspecified Category: Medical Qualifiers: COPD type: emphysema Emphysema type: panlobular Qualified Code(s): J43.1 - Panlobular emphysema (7) Smoker: Comment: Smoking Cessation How to Quit There are a lot of ways to quit smoking and many resources to help you. Family members, friends, and co-workers may be supportive or encouraging, but to be successful the desire and commitment to quit must be your own. Most people who have been able to successfully quit smoking made at least one unsuccessful attempt in the past. Try not to view past attempts to quit as failures, but rather as learning ex periences. Stopping smoking or using smokeless tobacco is difficult, but anyone can do it. Know the symptoms to expect when you stop. Common symptoms include: ? An intense craving for nicotine ? Anxiety, tension, restlessness, frustration, or impatience ? Difficulty concentrating ? Drowsiness or trouble sleeping, as well as bad dreams and nightmares ? Drowsiness and trouble sleeping ? Headaches ? Increased appetite and weight gain ? Irritability or depression How severe your symptoms are depends on how long you smoked and how many cigarettes you smoked each day. Feel ready to quit? ? First and foremost, set a quit date and quit completely on that day. Before your quit date, you may begin reducing your cigarette use. But remember, there is no safe level of cigarette smoking. ? List the reasons why you want to quit. Include both short- and long-term benefits. ? Identify the times you are most likely to smoke. For example, do you tend to smoke when feeling stressed or down? When out at night with friends? While drinking coffee or alcohol? When bored? While driving? Right after a meal or sex? During a work break? While watching TV or playing cards? When you are with other smokers? ? Let all of your friends, family, and co-workers know of your plan to stop smoking and your quit date. Just being aware that they know what you're going through can be helpful, especially when you are grumpy. ? Get rid of all your cigarettes just before the quit date, and clean out anything that smells like smoke, such as clothes and furniture. Make a plan about what you will do instead of smoking at those times when you are most likely to smoke. ? Be as specific as possible. For example, drink tea instead of coffee -- tea may not trigger the desire for a cigarette. Or, take a walk when you feel stressed. ? Remove ashtrays and cigarettes from the car. Place pretzels or hard candies there instead. Pretend-smoke with a straw. ? Find activities that focus your hands and mind but are not taxing or fattening. Computer games, solitaire, knitting, sewing, and crossword puzzles may help. ? If you normally smoke after eating, find other ways to end a meal. Play a tape or CD, eat a piece of fruit, get up and make a phone call, or take a walk (a good distraction that also benoit calories). Make other changes in your lifestyle. ? Change your daily schedule and habits. Eat at different times or eat several small meals instead of three large ones. Sit in a different chair or even a different room. ? Satisfy your oral habits by eating celery or other low-calorie snack, chewing sugarless gum, or sucking on a cinnamon stick. ? Go to public places and restaurants where smoking is prohibited or restricted. ? Eat regular meals and don't eat too much candy or sweet things. ? Get more exercise. Take walks or ride a bike. Exercise helps relieve the urge to smoke. Set short-term quitting goals and reward yourself when you meet them. ? Every day, put the money you normally spend on cigarettes in a jar. Then buy something pleasurable after a period of time. ? Try not to think about all the days ahead you will need to avoid smoking. Take it one day at a time. ? Even one puff or one cigarette will make your desire for more cigarettes even stronger. However, it is normal to make mistakes. So even if you have one cigarette, you don't need to take the next one. Other tips to help you quit smoking and stick to it: ? Enroll in a smoking cessation program (hospitals, health departments, community centers, and work sites often offer programs). Learn about self-hypnosis or other techniques. ? Ask your health care provider about prescription medications that are safe and appropriate for you. ? Find out about nicotine patches, gum, and sprays. The [place] [employer]'s web site -- www.cancer.org -- is an excellent resource for smokers who are trying to quit, and the [employer] [place] [employer] can help some smokers kick the habit. Above all, don't get discouraged if you aren't able to quit smoking the first time. Nicotine addiction is a hard habit to break. Try something different next time. Develop new strategies, and try again. Many people take several attempts to finally kick the habit. Code(s): F17.200 - Nicotine dependence, unspecified, uncomplicated Category: Social Hx (8) Influenza vaccination administered at current visit: Onset Date: ~10/26/25 Code(s): Z23 - Encounter for immunization Category: Medical (9) Tachycardia: Code(s): R00.0 - Tachycardia, unspecified Category: Medical Plan: noted today on exam, reports baseline, will monitor at future visits, offers no complaints Plan . 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, E78.2 - Mixed hyperlipidemia, I10 - Essential (primary) hypertension, R71.8 - Other abnormality of red blood cells, R79.89 - Other specified abnormal findings of blood chemistry Vitamin D 25-OH Total 6 Months 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
[2025-10-26 12:10] VITALS: BP 118/68; PULSE 103; RESP 13; TEMP 36.4; O2SAT 95; BMI 24.1
[2025-10-26 12:30] VITALS: PULSE 101; O2SAT 96
== END 2025-10-26 12:40 | disposition home or self-care (01) ==
LOC: HO.HMCFM 12:05
PROVIDERS: PCP Nurse Practitioner Family; Visit Provider Nurse Practitioner Family
DX: I10 Essential (primary) hypertension (principal); E78.2 Mixed hyperlipidemia; R79.89 Other specified abnormal findings of blood chemistry; D58.2 Other hemoglobinopathies; R71.8 Other abnormality of red blood cells; F31.61 Bipolar disorder, current episode mixed, mild; D49.2 Neoplasm of unspecified behavior of bone, soft tissue, and skin; J43.1 Panlobular emphysema; F17.200 Nicotine dependence, unspecified, uncomplicated; Z23 Encounter for immunization; R00.0 Tachycardia, unspecified